=== PATIENT | female | born 2000 | race Native Hawaiian/Other Pacific Islander ===

== ENCOUNTER 2022-06-04 21:17 | Emergency (ER) | payer OTHER ==
[~2022-06-04] VITALS: Ht 152.4 cm; Wt 68.0 kg
[2022-06-04 21:17] VITALS: BP 147/99; TEMP 98.9
[2022-06-04 21:36] LABS: PLATELET COUNT 339 K/uL (152-353)
[2022-06-04 21:50] LABS: POTASSIUM 3.4 mmol/L (3.6-5.2)
== END 2022-06-04 22:05 | disposition left against medical advice (07) ==
LOC: ED 21:17
PROVIDERS: Emergency Medicine Emergency Medical Services
DX: S00.83XA Contusion of other part of head, initial encounter (principal); T48.6X5A Adverse effect of antiasthmatics, initial encounter; W01.0XXA Fall on same level from slipping, tripping and stumbling without subsequent striking against object, initial encounter; Y92.094 Garage of other non-institutional residence as the place of occurrence of the external cause; Z53.29 Procedure and treatment not carried out because of patient's decision for other reasons
CPT/HCPCS: 80048; 83735; 85027; 93005; 99283